=== PATIENT | female | born 1990 | race Caucasian/White ===

== ENCOUNTER 2018-02-12 11:16 | Emergency (ER) | payer MEDICAID ==
[~2018-02-12] VITALS: Ht 177.8 cm; Wt 119.9 kg
[2018-02-12] MEDS ORDERED: HYDROcodone/APAP 5/325 TABLET PO ONE (12:00)
[2018-02-12] MEDS ORDERED: HYDROcodone/APAP 5/325 TABLET ONE (12:04)
[2018-02-12] MEDS ORDERED: BUPR300T49 PO (12:07)
[2018-02-12 14:11] VITALS: BP 135/81
== END 2018-02-12 14:15 | disposition home or self-care (01) ==
LOC: ED 13:28
DX: S92.414A Nondisplaced fracture of proximal phalanx of right great toe, initial encounter for closed fracture (principal)
CPT/HCPCS: 29515; 99284